=== PATIENT | male | born 1990 | race Caucasian/White ===

== ENCOUNTER 2017-06-12 08:51 | Emergency (ER) | payer BC, OTHER ==
[~2017-06-12] VITALS: Ht 170.2 cm; Wt 80.9 kg
[2017-06-12 08:56] VITALS: TEMP 36.6; Ht 170.2 cm; Wt 80.9 kg
[2017-06-12] MEDS ORDERED: ACETAMINOPHEN 500 MG TAB PO STA (09:12)
[2017-06-12] MEDS ORDERED: ONDANSETRON 4MG OD TAB PO ONE (09:15)
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
--- NOTE | 2017-06-12 09:42 | DIAGNOSTIC IMAGING REPORT ---
HEAD CT NONCONTRAST CT DOSE: 537.48 mGy.cm HISTORY: head injury, vomiting, eval trauma TECHNIQUE: Multiaxial CT images of the head were performed without the use of intravenous contrast. Automated exposure control was utilized for this study. A dose lowering technique was utilized adhering to the principles of ALARA. Comparison: Head CT 03/11/2008. Findings: The paranasal sinuses and mastoid air cells are clear. The calvarium and skull base are intact. The ventricles and sulci are within normal limits. There is no mass, hematoma, midline shift, or acute infarct. Stable prominent perivascular space on the right. Impression: No acute intracranial abnormality. Electronically signed by: Rafael Watters M.D. 06/12/2017 9:41 AM Dictated Date/Time: 06/12/2017 9:32 AM
[2017-06-12] MEDS ORDERED: ONDA4TAB10 SL (10:43)
[2017-06-12 11:17] VITALS: BP 128/82; PULSE 68; O2SAT 98
== END 2017-06-12 11:18 | disposition home or self-care (01) ==
LOC: C.EDB 08:52 → C.EDA 11:18
DX: S06.0X0A Concussion without loss of consciousness, initial encounter (principal); W22.8XXA Striking against or struck by other objects, initial encounter; E86.0 Dehydration; F17.200 Nicotine dependence, unspecified, uncomplicated; Z91.030 Bee allergy status